=== PATIENT | male | born 1970 | race Caucasian/White ===

== ENCOUNTER 2021-05-24 00:14 | Day surgery (SDC) | payer BC, SELFPAY ==
[2021-05-13 08:09] VITALS: BMI 31.4
[2021-05-24 06:55] VITALS: BP 142/110; PULSE 117; RESP 24; TEMP 36.2; O2SAT 100; BMI 34.2
[2021-05-24] MEDS: LACTATED RINGERS 1,000 ML 150 ML IV CONT (07:03)
--- NOTE | 2021-05-24 07:14 | WPDANESEPPF ---
Anes - Initial Pre Proc Eval Procedure: Operation Date: 05/24/21 08:00 Proposed Procedures p Screening Colonoscopy - Alexandru Caldwell MD Date/Time: 05/24/21 07:14 Surgeon: Alexandru Caldwell MD Pre Op Diagnosis: neoplasm screening Patient Data Age: 50 Gender: M Height: 1.83 m Weight: 114.5 kg Last Vital Signs Temp 36.2 C L 05/24/21 06:55 Pulse 117 H 05/24/21 06:55 Resp 24 H 05/24/21 06:55 BP 142/110 H 05/24/21 06:55 Pulse Ox 100 05/24/21 06:55 Allergies Allergy/AdvReac Type Severity Reaction Status Date / Time No Known Allergies Allergy Verified 05/24/21 06:54 Home Medications Medication Instructions Recorded Confirmed Type aspirin 81 mg tablet,delayed 81 mg PO DAILY 08/21/19 05/13/21 History release multivitamin 1 tablet PO DAILY 08/21/19 05/13/21 History omega-3 fatty acids 1,000 mg 1,000 mg PO DAILY 08/21/19 05/13/21 History capsule fluticasone propionate 50 2 spray NASAL DAILY #47.4 ml 04/07/20 05/13/21 Rx mcg/actuation nasal spray,suspension ascorbic acid (vitamin C) 1,000 mg 1 g PO DAILY 02/18/21 05/13/21 History tablet metoprolol tartrate 50 mg tablet 50 mg PO Q12H #180 tablet 02/18/21 05/13/21 Rx quinapril 20 mg tablet 20 mg PO DAILY #90 tablet 02/18/21 05/13/21 Rx Patient hx anesthesia problems: none Family hx anesthesia problems: none Results Review: All pre-operative results and documents have been reviewed as part of the pre-operative evaluation. [facility] Past Medical History Medical History (Updated 05/24/21 @ 07:15 by Yusuf Hernandez MD) Essential (primary) hypertension Metabolic syndrome Mixed hyperlipidemia Other sleep apnea Prediabetes Family History Family History Mother Diabetes mellitus Hypertension Grandparent Diabetes mellitus Hypertension Sibling Diabetes mellitus Father Hypertension, Onset Age: 41 Family history of cardiovascular disease, Onset Age: 41 Family history of coronary artery disease, Onset Age: 41 Family history of sudden , Onset Age: 41 Other Family history of elevated blood lipids Social History Social History (Reviewed 02/18/21 @ 09:53 by Radhika Sifuentes [facility]) Smoking status: Never smoker Second hand tobacco smoke exposure: No Alcohol intake: current Drinks per week: 2 Alcohol use details: BEERS Substance use: never Substance use type: does not use Living arrangements: with family Spiritual care concerns: No Anes - Eval Final PreProcedure Day of Procedure 05/24/21 07:14 Patient weight: obese Heart: regular rate and rhythm Lungs: clear to auscultation and normal air movement Airway: Mallampati scale class II Neurological: alert and oriented Last oral intake: >/= 8 hours ASA classification: III Emergent: no Anesthetic plan: proceed Anesthesia type and monitoring: general GIVS Results Review: All pre-operative results and documents have been reviewed as part of the pre-operative evaluation. Informed Consent: The patient's anesthetic plan and its attendant risks and benefits were discussed with the patient/family/POA. Questions were solicited and answers provided to the satisfaction of the patient/family/POA.
--- NOTE | 2021-05-24 07:51 | WPDGICN ---
Assessment and Plan Assessment and plan (1) Encounter for screening colonoscopy: Code(s): Z12.11 - Encounter for screening for malignant neoplasm of colon Status: Acute Assessment and Plan: Patient presents for screening colonoscopy. Patient appears to be at average risk for colon polyps. GI Consult Note Consult date/time: 05/24/21 07:51 HPI: Alexandru Sargent is a 50 year old male Presents for screening colonoscopy. Patient states that his current weight appetite and bowel movements are normal. Patient denies abdominal pain. He has had no bleeding. Family history is noncontributory. He presents today for neoplasia screening. Review of Systems Review of Systems: All systems reviewed & are unremarkable except as noted in HPI and below PMFSH Past Medical History Medical History (Updated 05/24/21 @ 07:52 by Alexandru Caldwell MD) Essential (primary) hypertension Metabolic syndrome Mixed hyperlipidemia Other sleep apnea Prediabetes Family History Family History (Reviewed 01/06/20 @ 09:03 by Bernie Partida [facility]) Mother Diabetes mellitus Hypertension Grandparent Diabetes mellitus Hypertension Sibling Diabetes mellitus Father Hypertension, Onset Age: 41 Family history of cardiovascular disease, Onset Age: 41 Family history of coronary artery disease, Onset Age: 41 Family history of sudden , Onset Age: 41 Other Family history of elevated blood lipids Social History Social History (Reviewed 02/18/21 @ 09:53 by Radhika Sifuentes [facility]) Smoking status: Never smoker Second hand tobacco smoke exposure: No Alcohol intake: current Drinks per week: 2 Alcohol use details: BEERS Substance use: never Substance use type: does not use Living arrangements: with family Spiritual care concerns: No Meds Home Medications and Allergies Home Medications Medication Instructions Recorded Confirmed Type aspirin 81 mg tablet,delayed 81 mg PO DAILY 08/21/19 05/13/21 History release multivitamin 1 tablet PO DAILY 08/21/19 05/13/21 History omega-3 fatty acids 1,000 mg 1,000 mg PO DAILY 08/21/19 05/13/21 History capsule fluticasone propionate 50 2 spray NASAL DAILY #47.4 ml 04/07/20 05/13/21 Rx mcg/actuation nasal spray,suspension ascorbic acid (vitamin C) 1,000 mg 1 g PO DAILY 02/18/21 05/13/21 History tablet metoprolol tartrate 50 mg tablet 50 mg PO Q12H #180 tablet 02/18/21 05/13/21 Rx quinapril 20 mg tablet 20 mg PO DAILY #90 tablet 02/18/21 05/13/21 Rx Allergies Allergy/AdvReac Type Severity Reaction Status Date / Time No Known Allergies Allergy Verified 05/24/21 06:54 Vital Signs Vital Signs - 24 hr 05/24/21 06:55 Temperature 97.2 F L Pulse Rate 117 H Respiratory Rate 24 H Blood Pressure 142/110 H Pulse Oximetry 100 Exam Narrative: Physical exam reveals patient to be alert. Vital signs stable. HEENT exam is unremarkable. Patient is anicteric. Lungs are clear to auscultation and percussion. Heart is without murmur or extra sounds. Abdominal exam bowel sounds present soft nontender with no organomegaly. Digital external rectal exam is normal.
[2021-05-24 08:13] VITALS: BP 128/95; PULSE 104; RESP 21; O2SAT 94
[2021-05-24 08:23] VITALS: BP 132/82; PULSE 94; RESP 13; O2SAT 95
[2021-05-24 08:34] VITALS: BP 138/100; PULSE 90; RESP 13; O2SAT 95
== END 2021-05-24 08:47 | disposition home or self-care (01) ==
PROVIDERS: PCP Family Medicine; Visit Provider Internal Medicine Gastroenterology
PROC: 0DJD8ZZ Inspection of Lower Intestinal Tract, Via Natural or Artificial Opening Endoscopic (ICD-10-PCS; CPT 45378; principal; 2021-05-24 08:00)
DX: Z12.11 Encounter for screening for malignant neoplasm of colon (principal); I10 Essential (primary) hypertension; E78.2 Mixed hyperlipidemia; R73.03 Prediabetes; G47.39 Other sleep apnea; Z79.82 Long term (current) use of aspirin
CPT/HCPCS: 45378; J2001; J2704; J7120

== ENCOUNTER 2021-07-01 14:06 | Outpatient (RCR) | payer BC, SELFPAY ==
[2021-07-01] MEDS: FAMOTIDINE 20 MG TABLET PO (14:56)
[2021-07-01] MEDS: diphenhydrAMINE HCl CAP 25 MG CAPSULE PO (14:56)
[2021-07-01] MEDS: ACETAMINOPHEN 325 MG TABLET 650 MG PO (14:56)
[2021-07-01 14:59] VITALS: BP 149/97; PULSE 75; RESP 20; TEMP 36.9; O2SAT 99
[2021-07-01 16:03] VITALS: BP 138/82
== END 2021-07-01 17:00 ==
LOC: AMCINF 14:06
PROVIDERS: PCP Family Medicine; Referring Provider Family Medicine; Visit Provider Internal Medicine Hematology & Oncology
DX: U07.1 COVID-19 (principal); E11.9 Type 2 diabetes mellitus without complications; I10 Essential (primary) hypertension
CPT/HCPCS: A9270; M0243; Q0244

== ENCOUNTER 2022-02-15 08:43 | Outpatient (CLI) | payer BC, SELFPAY ==
[2022-02-15 19:26] LABS: Alanine Aminotransferase 56 U/L (6-50); Albumin Level 4.5 g/dL (3.5-5.1); Alkaline Phosphatase 71 U/L (38-126); Anion Gap 10 mmol/L (8-16); Aspartate Amino Transferase 43 U/L (17-59); Bilirubin,Total 0.7 mg/dL (0.2-1.3); Blood Urea Nitrogen 22 mg/dL (9-20); Calcium 8.9 mg/dL (8.4-10.2); Carbon Dioxide 28 mmol/L (22-30); Chloride 102 mmol/L (98-107); Cholesterol 163 mg/dL (0-200); Estimated Glomerular Filt Rate > 60; Glucose 99 mg/dL (65-110); HDL Direct 29 mg/dL; Potassium 4.1 mmol/L (3.4-5.0); Sodium 140 mmol/L (137-145); Triglycerides 116 mg/dL (<150)
[2022-02-15 19:28] LABS: LDL Cholesterol Direct 104 mg/dL
[2022-02-15 19:36] LABS: Hemoglobin A1C 5.7 % (<5.7)
== END 2022-02-15 08:44 | disposition home or self-care (01) ==
LOC: ANHGOSHLAB 08:44
PROVIDERS: PCP Family Medicine; Visit Provider Family Medicine
DX: E78.5 Hyperlipidemia, unspecified (principal)
CPT/HCPCS: 36415; 80053; 80061; 83036; 84443

== ENCOUNTER 2022-08-15 08:25 | Outpatient (CLI) | payer BC, SELFPAY ==
[2022-08-15 21:17] LABS: Alanine Aminotransferase 46 U/L (6-50); Albumin Level 4.4 g/dL (3.5-5.1); Alkaline Phosphatase 69 U/L (38-126); Anion Gap 5 mmol/L (8-16); Aspartate Amino Transferase 38 U/L (17-59); Bilirubin,Total 0.7 mg/dL (0.2-1.3); Blood Urea Nitrogen 21 mg/dL (9-20); Calcium 8.6 mg/dL (8.4-10.2); Carbon Dioxide 29 mmol/L (22-30); Chloride 102 mmol/L (98-107); Cholesterol 189 mg/dL (0-200); Estimated Glomerular Filt Rate > 60; Glucose 89 mg/dL (65-110); HDL Direct 33 mg/dL; Potassium 4.6 mmol/L (3.4-5.0); Sodium 136 mmol/L (137-145); Triglycerides 110 mg/dL (<150)
[2022-08-15 21:30] LABS: LDL Cholesterol Direct 116 mg/dL
[2022-08-16 10:51] LABS: Hemoglobin A1C 5.8 % (<5.7)
== END 2022-08-15 08:26 | disposition home or self-care (01) ==
LOC: ANHGOSHLAB 08:26
PROVIDERS: PCP Family Medicine; Visit Provider Family Medicine
DX: E78.5 Hyperlipidemia, unspecified (principal)
CPT/HCPCS: 36415; 80053; 80061; 83036

== ENCOUNTER 2023-08-24 08:01 | Outpatient (CLI) | payer BC, SELFPAY ==
--- NOTE | 2023-08-24 08:19 | ECG_ITS ---
Measurements Intervals [place] Rate: 62 P: -9 AK: 213 QRS: -12 QRSD: 106 T: -3 QT: 404 QTc: 412 Interpretive Statements SINUS RHYTHM WITH FIRST DEGREE AV BLOCK INFERIOR MYOCARDIAL INFARCTION [40+ ms Q WAVE AND/OR ST/T ABNORMALITY IN II/aVF], OF INDETERMINATE AGE ABNORMAL ECG NO PREVIOUS ECG AVAILABLE FOR COMPARISON Electronically Signed On 08-24-2023 12:40:45 [employer] by Marco Simental M.D.
== END 2023-08-24 08:02 | disposition home or self-care (01) ==
LOC: ANHSURGERY 08:05
PROVIDERS: PCP Family Medicine; Visit Provider Surgery
DX: Z01.818 Encounter for other preprocedural examination (principal); I10 Essential (primary) hypertension; K40.90 Unilateral inguinal hernia, without obstruction or gangrene, not specified as recurrent; I44.0 Atrioventricular block, first degree; I21.9 Acute myocardial infarction, unspecified
CPT/HCPCS: 36415; 86850; 86900; 86901; 93005

== ENCOUNTER 2023-08-29 00:13 | Day surgery (SDC) | payer BC, SELFPAY ==
[2023-08-21 09:50] VITALS: BMI 33.2
--- NOTE | 2023-08-21 09:55 | PC.NURSE ---
Report to the Outpatient Waiting Room, entrance under the green pavilion located off [facility], at time 11:30 on date 08/29/23. Planned Procedure Time: 1:30. Time changes happen often and if your time is changed the preop area will call you the afternoon before. - You and your visitor will be asked to self-screen and do not enter if you have any COVID symptoms. - A mask is optional within the hospital at this time. Patients may have clear liquids (water, carbonated beverages, clear teas, apple juice) until 3 hours prior to surgery (10:30) with a maximum of 20 ounces. - No food from midnight until time of surgery Take the following medications with a SIP of water the morning of surgery: METOPROLOL DO NOT STOP ANY OF YOUR OTHER PRESCRIPTION MEDICATIONS PRIOR TO SURGERY ?EXCEPT THE FOLLOWING Medications to discontinue per physician: VITAMINS/SUPPLEMENTS Date to take last dose: 08/25/23 Please no make-up, nail georgian, hairspray, perfume, deodorant, or body powder the day of surgery. No jewelry (including any body piercings) or valuables the day of surgery, leave them at home. Please take a shower or bath the night before, or the morning of, surgery with an antibacterial soap. Wear comfortable, loose fitting clothing. - Jewelry must be removed prior to entering the operating room. Rings and piercings that are not removed may be cut off. - The hospital will not accept responsibility for valuables. - Please leave all valuables, including medications, at home the day of surgery. If you are going home after surgery, a licensed team driver must drive you home. - NO public transportation without another adult if you receive anesthesia. - We recommend that an adult stay with you for 24 hours following discharge. - We also recommend that you do not drive, make important decision, drink alcoholic beverages, or take any drugs that were not prescribed by your health care provider for at least 24 hours after your discharge time. Follow any additional instructions given to you from your surgeon. If you or anyone in your household have experienced Covid symptoms in the past week, please notify your surgeon or the nurse liaison at the phone number below for possible testing. Telephone instructions given to PT - ANTONIA MAGUIRE and asked if any additional questions and then verbalized understanding. Patient advised to call surgeon office or pre surgery nurse liaison [phone] if any additional questions.
[2023-08-29] VITALS (9 sets, daily range): BP systolic 109–152; BP diastolic 68–98; PULSE 57–80; RESP 12–16; TEMP 36.2; O2SAT 97–100
[2023-08-29] MEDS: LACTATED RINGERS 1,000 ML 30 ML IV CONT ×3 (12:00→17:44)
[2023-08-29] MEDS: ACETAMINOPHEN 500 MG TABLET 1000 MG PO (12:00)
[2023-08-29] MEDS: KETOROLAC 15 MG/ML VIAL (*BKC) IV PUSH (12:00)
--- NOTE | 2023-08-29 12:44 | WPDANESEPPF ---
Anes - Initial Pre Proc Eval Procedure: Operation Date: 08/29/23 13:30 Proposed Procedures p Robotic Assisted Laparoscopic Left Inguinal Hernia Repair, Possible Right Inguinal Hernia Repair - Greg Mcnair MD Date/Time: 08/29/23 12:44 Surgeon: Greg Mcnair MD Pre Op Diagnosis: reducible left inguinal hernia Patient Data Age: 52 Gender: M Height: 1.83 m Weight: 111 kg Last Vital Signs Temp 97.2 F L 08/29/23 12:25 Pulse 68 08/29/23 12:25 Resp 14 08/29/23 12:25 BP 152/98 H 08/29/23 12:25 Pulse Ox 100 08/29/23 12:25 O2 Del Method Room Air 08/29/23 12:25 Allergies Allergy/AdvReac Type Severity Reaction Status Date / Time No Known Allergies Allergy Verified 08/29/23 12:43 Home Medications Medication Instructions Recorded Confirmed Type aspirin 81 mg tablet,delayed 81 mg PO DAILY 08/21/19 08/21/23 History release (Adult Low Dose Aspirin) multivitamin 1 tablet PO DAILY 08/21/19 08/21/23 History omega-3 fatty acids 1,000 mg 1,000 mg PO DAILY 08/21/19 08/21/23 History capsule (Fish Oil Concentrate) ascorbic acid (vitamin C) 1,000 mg 1 g PO DAILY 02/18/21 08/21/23 History tablet fluticasone propionate 50 2 spray intranasal DAILY #47.4 mL 08/18/22 08/21/23 Rx mcg/actuation nasal spray,suspension metoprolol tartrate 50 mg tablet 50 mg PO Q12H #180 tabs 08/18/22 08/21/23 Rx lisinopril 20 mg tablet 20 mg PO DAILY #90 tabs 03/01/23 08/21/23 Rx Patient hx anesthesia problems: none Family hx anesthesia problems: none Results Review: All pre-operative results and documents have been reviewed as part of the pre-operative evaluation. [facility] Past Medical History Medical History Essential (primary) hypertension Metabolic syndrome Mixed hyperlipidemia Other sleep apnea Prediabetes Surgical History Surgical History H/O inguinal hernia repair Family History Family History Mother Diabetes mellitus Hypertension Grandparent Diabetes mellitus Hypertension Sibling Diabetes mellitus Father Hypertension, Onset Age: 41 Family history of cardiovascular disease, Onset Age: 41 Family history of coronary artery disease, Onset Age: 41 Family history of sudden , Onset Age: 41 Other Family history of elevated blood lipids Social History Social History Smoking status: Never smoker Second hand tobacco smoke exposure: No Alcohol intake: current Drinks per week: 2 Alcohol use details: BEERS Substance use: never Substance use type: does not use Lack of Transportation: No Lack of Food: Never True Current Housing: I Have Housing Concerned About Future Housing: No Difficulty Paying Gas/Electric Bills: No Difficulty Paying for Meds: No Currently Unemployed: No Education: High School Diploma/GED Difficulty w/ Childcare or Family Care: No Living arrangements: with family Spiritual care concerns: No Anes - Eval Final PreProcedure Day of Procedure 08/29/23 12:44 Patient weight: obese Heart: regular rate and rhythm Lungs: clear to auscultation Airway: Mallampati scale class II Neurological: alert and oriented Last oral intake: >/= 8 hours ASA classification: III Emergent: no Anesthetic plan: proceed Anesthesia type and monitoring: general ETT and standard monitoring Results Review: All pre-operative results and documents have been reviewed as part of the pre-operative evaluation. Informed Consent: The patient's anesthetic plan and its attendant risks and benefits were discussed with the patient/family/POA. Questions were solicited and answers provided to the satisfaction of the patient/family/POA.
--- NOTE | 2023-08-29 13:05 | WPDHPUPDATE1 ---
History and Physical Update Update Date/Time: 08/29/23 13:05 History and Physical has been reviewed, including an updated exam of the patient. There are NO changes in the patient's condition. Risks, benefits, and alternatives have been discussed and questions answered. Patient agrees to proceed with procedure.
[2023-08-29] MEDS: ceFAZolin 2 GM/D5W 50 ML 2 GM/50 ML BAG IVPB (13:59)
[2023-08-29] MEDS: LIDO 1%/EPINEPHRINE 1:100,000 50 ML VIAL 30 ML INFILTRATE (14:36)
[2023-08-29] MEDS: KETOROLAC 30 MG/ML VIAL (*BKC) 15 MG IM (15:52)
--- NOTE | 2023-08-30 12:16 | W.PM.PROC2 ---
Procedure Note - Detailed Date of Procedure 08/29/23 Pre-op Diagnosis Reducible left inguinal hernia Post-op Diagnosis Other ( Incarcerated left inguinal hernia.) Procedure Performed Robotic assisted laparoscopic left inguinal hernia repair with Bard 3D mid weight mesh ( [id number] ). Surgeon Greg Mcnair MD Wildlife Conservationist Alexandru Ramirez [facility] Anesthesia General Indications Patient is a 52-year-old gentleman who presented with a large left inguinal hernia which was only partially reducible. It seemed to extend down to the base of the scrotum but did not seem to fill the scrotum. He had no bowel obstructive symptoms but due to increasing discomfort and increasing size the hernia presents now for elective repair the left inguinal hernia with robotic assisted laparoscopic approach with mesh. Findings Patient a large indirect left inguinal hernia. A short segment of the sigmoid colon was actually incarcerated within the left inguinal canal in the hernia sac. I was able to easily reduce the hernia robotically however and the bowel was completely viable. No evidence of a direct or femoral component was seen. No evidence of a right inguinal hernia seen Description of Procedure After informed consent was obtained patient brought to the operating room was placed supine position and then general endotracheal anesthesia was administered. The abdomen and bilateral groin regions were then prepped and draped usual sterile fashion. A time-out was then performed correctly identifying the patient as well as procedure to be performed. Site marking was verified and he was given perioperative IV antibiotics. I 1st started by making a small incision left upper quadrant and then placing a 10mm Optiview port. Once inside the abdomen insufflated and pneumoperitoneum 15mmHg of CO2. Additional 8mm robotic trocar ports were then placed across the mid abdomen. Patient was then placed and to the Trendelenburg position with 15? of Trendelenburg. I then observed that there were no adhesions of the bowel or omentum to obscure the lower quadrants of the abdomen. No evidence of a right inguinal hernia was seen. On the left side there is a large indirect left inguinal hernia with a short segment of the sigmoid colon going down into the hernia sac. The bowel was not obstructed. I then had the [employer] robot brought to the patient's bedside and docked robotic instruments advanced into the abdomen under direct visualization. I then scrubbed out the procedure sent down the robotic console for dissection robotically. I 1st started by reducing the sigmoid colon and the inguinal canal. The adhesion of the epiploic appendage on the sigmoid colon which was scarred to the hernia sac was divided with electrocautery releasing the colon. It was completely reduced from the inguinal canal. I then made a incision on the peritoneum across the left side of the lower abdominal wall. I then continued the dissection distally preperitoneal plane medially dividing the left medial umbilical ligament and dissecting all the way down to the left pubic tubercle. I dissected down into the space of Retzius for couple cm in dissected medially across the midline of the pubic symphysis. Laterally I dissected in the preperitoneal plane going down to the hernia sac as it was going into the internal ring. The inferior epigastric vessels were identified and preserved without injury. I dissected the large indirect inguinal hernia sac out of the inguinal canal and from the vas deferens and testicular vessels. Once this was done I then be everted the hernia sac and then dissected the peritoneal flap proximally up onto the psoas muscle to make sure that the proximal portion mesh would not curl up with the tacking up the peritoneum. At this point I then measured at space in decided to use a extra-large piece of Bard 3D mid weight mesh oriented for the left groin region. It measured 17cm in length by 12cm
== END 2023-08-29 19:10 | disposition home or self-care (01) ==
PROVIDERS: PCP Family Medicine; Visit Provider Surgery
PROC: 8E0Y4CZ Robotic Assisted Procedure of Lower Extremity, Percutaneous Endoscopic Approach (ICD-10-PCS; CPT 49650; principal; 2023-08-29 13:30)
DX: K40.30 Unilateral inguinal hernia, with obstruction, without gangrene, not specified as recurrent (principal); I10 Essential (primary) hypertension; E78.2 Mixed hyperlipidemia
CPT/HCPCS: 49650; S2900; A9270; C1781; J0690; J1100; J1170; J1596; J1885; J2250; J2405; J2704; J3010; J7030; J7120

== ENCOUNTER 2023-10-11 08:34 | Outpatient (CLI) | payer BC, SELFPAY ==
[2023-10-11 12:24] LABS: Alanine Aminotransferase 46 U/L (6-50); Albumin Level 4.3 g/dL (3.5-5.1); Alkaline Phosphatase 67 U/L (38-126); Anion Gap 5 mmol/L (4-12); Aspartate Amino Transferase 55 U/L (17-59); Bilirubin,Total 0.8 mg/dL (0.2-1.3); Blood Urea Nitrogen 19 mg/dL (9-20); Calcium 9.2 mg/dL (8.4-10.2); Carbon Dioxide 29 mmol/L (22-30); Chloride 103 mmol/L (98-107); Cholesterol 177 mg/dL (0-200); Estimated Glomerular Filt Rate > 60; Glucose 109 mg/dL (65-110); HDL Direct 31 mg/dL; Potassium 4.3 mmol/L (3.4-5.0); Sodium 137 mmol/L (137-145); Triglycerides 166 mg/dL (<150)
[2023-10-11 12:34] LABS: LDL Cholesterol Direct 118 mg/dL
[2023-10-12 00:47] LABS: Hemoglobin A1C 6.1 % (<5.7)
== END 2023-10-11 08:35 | disposition home or self-care (01) ==
LOC: ANHGOSHLAB 08:35
PROVIDERS: PCP Family Medicine; Visit Provider Family Medicine
DX: R74.8 Abnormal levels of other serum enzymes (principal); R73.03 Prediabetes; E78.5 Hyperlipidemia, unspecified
CPT/HCPCS: 36415; 80053; 80061; 83036

== ENCOUNTER 2024-12-11 09:32 | Outpatient (CLI) | payer BC, SELFPAY ==
[2024-12-11 21:15] LABS: Alanine Aminotransferase 53 U/L (6-50); Albumin Level 4.5 g/dL (3.5-5.1); Alkaline Phosphatase 55 U/L (38-126); Anion Gap 12 mmol/L (4-12); Aspartate Amino Transferase 50 U/L (17-59); Bilirubin,Total 0.8 mg/dL (0.2-1.3); Blood Urea Nitrogen 23 mg/dL (9-20); Calcium 9.4 mg/dL (8.4-10.2); Carbon Dioxide 23 mmol/L (22-30); Chloride 103 mmol/L (98-107); Cholesterol 184 mg/dL (0-200); Estimated Glomerular Filt Rate > 60; Glucose 88 mg/dL (65-110); HDL Direct 34 mg/dL; Potassium 4.1 mmol/L (3.4-5.0); Sodium 138 mmol/L (137-145); Total Protein 7.7 g/dL (6.3-8.2); Triglycerides 173 mg/dL (<150)
[2024-12-11 21:28] LABS: LDL Cholesterol Direct 108 mg/dL
[2024-12-11 21:48] LABS: Prostate Specific Antigen 2.5 ng/mL (< OR = 4.0)
[2024-12-11 22:01] LABS: Hemoglobin A1C 5.9 % (<5.7)
== END 2024-12-11 09:33 | disposition home or self-care (01) ==
LOC: ANHGOSHLAB 09:32
PROVIDERS: PCP Family Medicine; Visit Provider Family Medicine
DX: Z12.5 Encounter for screening for malignant neoplasm of prostate (principal); E78.5 Hyperlipidemia, unspecified; R73.03 Prediabetes
CPT/HCPCS: 36415; 80053; 80061; 83036; 84153; G0103

== ENCOUNTER 2025-01-25 09:07 | Emergency (ER) | payer BC, SELFPAY ==
[2025-01-25 09:18] VITALS: BP 149/97; PULSE 58; RESP 16; TEMP 36.3; O2SAT 98
--- NOTE | 2025-01-25 09:37 | ED.ABDPAIN ---
HPI - Abdominal Pain General Chief Complaint: Abdominal Pain Stated Complaint: Abdominal Pain Time Seen by Provider: 01/25/25 09:24 Source: patient and RN notes reviewed Mode of arrival: ambulatory Limitations: no limitations History of Present Illness HPI narrative: Patient presents today complaining of a 2 day history of left lower quadrant abdominal pain with bloating sensation. He has been taking ibuprofen with some short-term relief and currently rates his pain 4/10. He took 1 dose of milk of magnesia yesterday for some firm stools without much improvement as well. He had some firm stool yesterday and some today. Denies fever, sweats or chills, nausea, vomiting, diarrhea, chest pain, urinary symptoms. He had a colonoscopy a few years ago and states it was normal. No history of diverticulitis or diverticulosis. Related Data Home Medications ?Medication ?Instructions ?Recorded ?Confirmed ?Last Taken ?Type aspirin 81 mg tablet,delayed 81 mg PO DAILY 08/21/19 05/17/24 08/26/23 History release (Adult Low Dose Aspirin) multivitamin 1 tablet PO DAILY 08/21/19 05/17/24 08/26/23 History omega-3 fatty acids 1,000 mg 1,000 mg PO DAILY 08/21/19 05/17/24 08/26/23 History capsule (Fish Oil Concentrate) ascorbic acid (vitamin C) 1,000 mg 1 g PO DAILY 02/18/21 05/17/24 08/26/23 History tablet red beet 500 mg capsule mg PO 12/19/24 Unknown History Allergies Allergy/AdvReac Type Severity Reaction Status Date / Time No Known Allergies Allergy Verified 12/19/24 09:03 [facility] Past Medical History Medical History Metabolic syndrome Mixed hyperlipidemia Other sleep apnea Prediabetes Essential (primary) hypertension Surgical History Surgical History H/O inguinal hernia repair Robotic assisted laparoscopic left inguinal hernia repair with Bard 3D mid weight mesh ( [id number] ) 08/29/23 SAW Family History Family History Mother Diabetes mellitus Hypertension Grandparent Diabetes mellitus Hypertension Sibling Diabetes mellitus Father Hypertension, Onset Age: 41 Family history of cardiovascular disease, Onset Age: 41 Family history of coronary artery disease, Onset Age: 41 Family history of sudden , Onset Age: 41 Other Family history of elevated blood lipids Social History Social History Smoking status: Never smoker Second hand tobacco smoke exposure: No Alcohol intake: current Drinks per week: 2 Alcohol use details: BEERS Substance use: never Substance use type: does not use Lack of Transportation: No Lack of Food: Never True Current Housing: I Have Housing Concerned About Future Housing: No Difficulty Paying Gas/Electric Bills: No Difficulty Paying for Meds: No Currently Unemployed: No Education: High School Diploma/GED Difficulty w/ Childcare or Family Care: No Living arrangements: with family Spiritual care concerns: No Comments At time of signature, I have reviewed and agree with nursing past medical, surgical, social and family history unless otherwise noted. Please see nursing chart for further information. There is no relevant family history pertinent to the presenting complaint Exam Narrative: GENERAL: Well-appearing, well-nourished, and in no acute distress. HEAD: Normocephalic, atraumatic. EYES: EOMI. No redness or drainage. Conjunctivae normal. ENT: Mucous membranes pink and moist. NECK: Normal AROM. CHEST: No respiratory distress. Clear to auscultation. HEART: Regular rate and rhythm. No murmur appreciated. ABDOMEN: Soft, nondistended, normal active bowel sounds.+ tenderness to the left lower quadrant without rebound or guarding. EXTREMITIES: Normal range of motion. No edema. SKIN: Warm, dry, no rash. Capillary refill normal. Normal skin turgor. NEURO: No focal deficits. Alert and oriented x3. Gait steady. PSYCH: Normal affect. No signs of depression or anxiety. Course Course Level of Care: Express Care Visit Vital Signs Vital signs: Vital Signs Temperature 97.3 F L 01/25/25 09:18 Pulse Rate 58 L 01/25/25 09:18 Respiratory Rate 16 01/25/25 09:18 Blood Pressure 149/97 H 01/25/25 09:18 Pulse Oximetry 98 01/25/25 09:18 Temperature 97.3 F L 01/25/25 09:18 Pulse Rate 58 L 01/25/25 09:18 Respiratory Rate 16 01/25/25 09:18 Blood Pressure 149/97 H 01/25/25 09:18 Pulse Oximetry 98 01/25/25 09:18 Reviewed Transfer Transfered to: [place] Transportation: Other (Private vehicle) Transfer rationale: Abdominal pain and tenderness Accepting physician: Marquis MDM - Abdominal Pain MDM Narrative Medical decision making narrative: 54-year-old male patient presents with a 2 day history of left lower quadrant abdominal pain with occasional firm stools. Denies any additional symptoms and currently rates pain 4/10. Some short-term relief with ibuprofen. Vital signs stable. Patient will be transferred to the ER at [facility] for further evaluation of his symptoms. Differential Diagnosis Differential diagnosis: Likely calculus of kidney, constipation and diverticulitis Critical Care Time Critical Care Time Critical Care Time: No Discharge Plan Discharge Clinical Impression: Abdominal pain, acute, left lower quadrant Patient Disposition: Acute Care Hospital Condition: Stable Patient Language: Filipino Prescriptions: No Action ascorbic acid (vitamin C) 1,000 mg tablet 1 g PO DAILY aspirin [Adult Low Dose Aspirin] 81 mg tablet,delayed release (DR/EC) 81 mg PO DAILY omega-3 fatty acids [Fish Oil Concentrate] 1,000 mg capsule 1,000 mg PO DAILY multivitamin Tablet 1 tablet PO DAILY red beet 500 mg capsule PO fluticasone propionate 50 mcg/actuation spray,suspension 2 spray NASAL DAILY Qty: 47.4 1RF Rx Instructions: administer into each nostril lisinopril 20 mg tablet 20 mg PO DAILY Qty: 90 1RF metoprolol tartrate 50 mg tablet 50 mg PO Q12H Qty: 180 1RF Follow-up/Referrals: Vinnie Freeman MD [Primary Care Provider] - Time of Disposition: 09:36
== END 2025-01-25 09:50 | disposition short-term general hospital (02) ==
PROVIDERS: Emergency Provider Nurse Practitioner; PCP Family Medicine
DX: R10.32 Left lower quadrant pain (principal); E78.2 Mixed hyperlipidemia; I10 Essential (primary) hypertension; Z79.1 Long term (current) use of non-steroidal anti-inflammatories (NSAID)
CPT/HCPCS: 99212; G0463

== ENCOUNTER 2025-01-25 09:59 | Emergency (ER) | payer BC, SELFPAY ==
--- NOTE | ~2025-01-25 | CT_ITS ---
EXAMINATION: CT abdomen pelvis w con DATE: 01/25/2025 12:52 INDICATION: Left lower quadrant pain TECHNIQUE: Computed tomography (CT) of the abdomen and pelvis was performed without intravenous contr ast. The dose-length product was 995.93 mGy-cm. Automated exposure control and iterative reconstructi on technique were employed. COMPARISON: CT dated 07/23/1999. FINDINGS: Lung bases unremarkable. Heart size normal. Fatty infiltration of the liver. The spleen, pa ncreas, adrenal glands and kidneys are unremarkable. Nonobstructive bowel gas pattern. No significant vascular abnormality. No lymphadenopathy. Gallbladder is present. Lower thoracic and lumbar spondylo sis. No acute osseous abnormality. No free air or free fluid. No lymphadenopathy. No evidence for div erticulitis. IMPRESSION: 1. No acute abdominal abnormality. Reviewed, dictated and finalized at location A.
[2025-01-25 10:23] VITALS: PULSE 56; RESP 12; TEMP 36.4; O2SAT 99
[2025-01-25 10:36] LABS: Hematocrit 50.2 % (42.0-52.0); Hemoglobin 16.4 g/dL (14.0-18.0); Immature Granulocyte Percent A 0.2 % (0-0.5); Lymphocytes Absolute Auto 1.50 K/mm3 (0.9-3.2); Mean Corpuscular HGB Conc 32.7 g/dl (32-36); Mean Corpuscular Hemoglobin 30.7 pg (26-34); Mean Corpuscular Volume 93.8 fl (80-100); Nucleated Red Blood Cells Absolute Auto 0.000 K/mm3 (0.0-0.012); Nucleated Red Blood Cells Perc 0.0 % (0.0-0.2); Platelet Count Result 177 k/mm3 (150-375); Red Blood Count 5.35 M/mm3 (4.6-6.20); White Blood Count 6.4 K/mm3 (4.5-10.0)
[2025-01-25 10:52] LABS: Alanine Aminotransferase 54 U/L (6-50); Albumin Level 4.6 g/dL (3.5-5.1); Alkaline Phosphatase 50 U/L (38-126); Anion Gap 10 mmol/L (4-12); Aspartate Amino Transferase 38 U/L (17-59); Bilirubin,Total 0.8 mg/dL (0.2-1.3); Blood Urea Nitrogen 21 mg/dL (9-20); Calcium 9.3 mg/dL (8.4-10.2); Carbon Dioxide 27 mmol/L (22-30); Chloride 104 mmol/L (98-107); Estimated CRCL calculation 101 ml/min; Estimated Glomerular Filt Rate > 60; Glucose 113 mg/dL (65-110); Lipase 76 U/L (23-300); Potassium 4.5 mmol/L (3.4-5.0); Sodium 141 mmol/L (137-145); Total Protein 8.0 g/dL (6.3-8.2)
[2025-01-25 11:20] VITALS: BP 158/91; PULSE 60; RESP 16; TEMP 36.8; O2SAT 98
[2025-01-25 11:31] VITALS: BP 135/91; PULSE 59; RESP 13; O2SAT 100
[2025-01-25 11:34] LABS: Add Urine Microscopic? YES; Appearance Urine Clear (Clear); Glucose Urine UA Negative (Negative); Leukocyte Esterase Ur Negative LEU/UL (Negative); Nitrate Urine Negative (Negative); Non Pathogenic Casts 0-2; Specific Grav Ur 1.025 (1.001-1.035)
[2025-01-25 12:01] VITALS: BP 142/84; PULSE 62; RESP 7; O2SAT 98
--- NOTE | 2025-01-25 12:42 | ED_ITS ---
HPI - General Adult General Chief complaint: Abdominal Pain Stated complaint: abdominal pain since Time Seen by Provider: 01/25/25 10:42 History of Present Illness HPI narrative: This is a 54-year-old male presenting ED with chief complaint of left lower quadrant pain. Symptoms started 2 days ago. They are not associated with fevers chills nausea vomiting. He has been constipated and took some magnesium citrate which is led to him having watery stools. He denies chest pain difficulty breathing or urinary symptoms. Related Data Home Medications ?Medication ?Instructions ?Recorded ?Confirmed ?Last Taken ?Type aspirin 81 mg tablet,delayed 81 mg PO DAILY 08/21/19 05/17/24 08/26/23 History release (Adult Low Dose Aspirin) multivitamin 1 tablet PO DAILY 08/21/19 05/17/24 08/26/23 History omega-3 fatty acids 1,000 mg 1,000 mg PO DAILY 08/21/19 05/17/24 08/26/23 History capsule (Fish Oil Concentrate) ascorbic acid (vitamin C) 1,000 mg 1 g PO DAILY 02/18/21 05/17/24 08/26/23 History tablet red beet 500 mg capsule mg PO 12/19/24 Unknown History Allergies Allergy/AdvReac Type Severity Reaction Status Date / Time No Known Allergies Allergy Verified 12/19/24 09:03 [facility] Past Medical History Medical History Metabolic syndrome Mixed hyperlipidemia Other sleep apnea Prediabetes Essential (primary) hypertension Surgical History Surgical History H/O inguinal hernia repair Robotic assisted laparoscopic left inguinal hernia repair with Bard 3D mid weight mesh ( [id number] ) 08/29/23 [facility] Family History Family History Mother Diabetes mellitus Hypertension Grandparent Diabetes mellitus Hypertension Sibling Diabetes mellitus Father Hypertension, Onset Age: 41 Family history of cardiovascular disease, Onset Age: 41 Family history of coronary artery disease, Onset Age: 41 Family history of sudden , Onset Age: 41 Other Family history of elevated blood lipids Social History Social History Smoking status: Never smoker Second hand tobacco smoke exposure: No Alcohol intake: current Drinks per week: 2 Alcohol use details: BEERS Substance use: never Substance use type: does not use Lack of Transportation: No Lack of Food: Never True Current Housing: I Have Housing Concerned About Future Housing: No Difficulty Paying Gas/Electric Bills: No Difficulty Paying for Meds: No Currently Unemployed: No Education: High School Diploma/GED Difficulty w/ Childcare or Family Care: No Living arrangements: with family Spiritual care concerns: No Exam 2 Narrative: APPEARANCE: No apparent distress. Head: atraumatic. EYES: EOMI, NOSE: Atraumatic NECK: Trachea midline RESPIRATORY: No increased rate of breathing clear to auscultation CARDIOVASCULAR: RRR, no peripheral edema ABDOMINAL: Non-distended soft nontender no guarding or rebound MUSCULOSKELETAl: No obvious deformities NEURO: Alert. Moving 4/4 extremities SKIN:: Warm, dry. Normal color PSYCHIATRIC: Normal affect Course Vital Signs Vital signs: Vital Signs Temperature 97.5 F L 01/25/25 10:23 Pulse Rate 56 L 01/25/25 10:23 Respiratory Rate 12 01/25/25 10:23 Pulse Oximetry 99 01/25/25 10:23 Oxygen Delivery Room Air 01/25/25 10:23 Temperature 98.2 F 01/25/25 11:20 Pulse Rate 60 01/25/25 11:20 Respiratory Rate 16 01/25/25 11:20 Blood Pressure 158/91 H 01/25/25 11:20 Pulse Oximetry 98 01/25/25 11:20 Oxygen Delivery Room Air 01/25/25 10:23 Medical Decision Making [facility] Narrative Medical decision making narrative: -Course: 54-year-old male presents left lower quadrant pain. Pain is improved with passing gas. Patient has been constipated has been taking magnesium citrate. Vital signs stable. Abdominal exam is benign. Laboratory studies within normal limits. CT abdomen pelvis unremarkable. Suspect pain is due to constipation versus gas pains. Patient was informed the results of discharged follow-up as primary care physician for further management. -DDX includes but is not limited to: Diverticulitis, colitis, constipation, colonic spasm Vital Signs Vital Signs: Vital Signs Temperature 97.5 F L 01/25/25 10:23 Pulse Rate 56 L 01/25/25 10:23 Respiratory Rate 12 01/25/25 10:23 Pulse Oximetry 99 01/25/25 10:23 Oxygen Delivery Room Air 01/25/25 10:23 Temperature 98.2 F 01/25/25 11:20 Pulse Rate 60 01/25/25 11:20 Respiratory Rate 16 01/25/25 11:20 Blood Pressure 158/91 H 01/25/25 11:20 Pulse Oximetry 98 01/25/25 11:20 Oxygen Delivery Room Air 01/25/25 10:23 Lab Data 01/25/25 10:25 01/25/25 10:25 Labs: Lab Results 01/25/25 01/25/25 Range/Units 10:25 11:24 WBC 6.4 (4.5-10.0) K/mm3 RBC 5.35 (4.6-6.20) M/mm3 Hgb 16.4 (14.0-18.0) g/dL Hct 50.2 (42.0-52.0) % MCV 93.8 (80-100) fl MCH 30.7 (26-34) pg MCHC 32.7 (32-36) g/dl RDW 13.6 (11.5-14.5) % Plt Count 177 (150-375) k/mm3 MPV 10.8 H (7.4-10.4) fl Immature Gran % (Auto) 0.2 (0-0.5) % Neut % (Auto) 64.3 (45.5-73.1) % Lymph % (Auto) 23.6 (18.3-44.2) % [place] % (Auto) 8.6 H (2.6-8.5) % Eos % (Auto) 2.4 (0-4.4) % Baso % (Auto) 0.9 (0.2-1.2) % Lymph # (Auto) 1.50 (0.9-3.2) K/mm3 [place] # (Auto) 0.6 (0.1-0.6) K/mm3 Eos # (Auto) 0.2 (0-0.3) K/mm3 Baso # (Auto) 0.1 (0.0-0.1) K/mm3 Abs Immat Gran (auto) 0.01 (0.00-0.031) K/mm3 Absolute Neuts (auto) 4.1 (1.3-6.7) K/mm3 Absolute Nucleated RBC 0.000 (0.0-0.012) K/mm3 Nucleated RBC % 0.0 (0.0-0.2) % Sodium 141 (137-145) mmol/L Potassium 4.5 (3.4-5.0) mmol/L Chloride 104 (98-107) mmol/L Carbon Dioxide 27 (22-30) mmol/L Anion Gap 10 (4-12) mmol/L BUN 21 H (9-20) mg/dL Creatinine 0.96 (0.7-1.3) mg/dL Estim Creat Clear Calc 101 ml/min Estimated GFR > 60 (59 - ) Glucose 113 H (65-110) mg/dL Lactic Acid 0.8 (0.7-2.0) mmol/L Calcium 9.3 (8.4-10.2) mg/dL Total Bilirubin 0.8 (0.2-1.3) mg/dL AST 38 (17-59) U/L ALT 54 H (6-50) U/L Alkaline Phosphatase 50 (38-126) U/L Total Protein 8.0 (6.3-8.2) g/dL Albumin 4.6 (3.5-5.1) g/dL Lipase 76 (23-300) U/L Urine Color Yellow (Yellow) Urine Appearance Clear (Clear) Urine pH 6.0 (5.0-9.0) Ur Specific Tiff 1.025 (1.001-1.035) Urine Protein 1+ H (Negative) mg/dL Urine Glucose (UA) Negative (Negative) mg/dL Urine Ketones Trace H (Negative) mg/dL Ur Blood (Man) Negative (Negative) Urine Nitrate Negative (Negative) Urine Bilirubin Negative (Negative) Urine Urobilinogen 0.2 (<2.0) mg/dL Leukocyte Esterase Rfl Negative (Negative) AVELINO/UL Urine RBC 0-2 (0-2) /hpf Urine WBC 0-5 (0-3) /hpf Ur Squamous Epith Cells None seen (Few) /hpf Urine Bacteria None seen /hpf Urine Casts 0-2 Discharge Plan Discharge Clinical Impression: Abdominal pain Patient Disposition: Home Condition: Stable Instructions: Antibiotic Form, Abdominal Pain (ED) Additional Instructions: You were seen in the ED for left-sided abdominal pain. Her laboratory studies and CT abdomen pelvis were reassuring. I believe your pain is most likely due to gas pains versus constipation. Please follow-up with your primary care physician. If you develop severe pain fevers or any new or worsening symptoms please return to the ED for re-evaluation. Patient Language: Yakut Prescriptions: No Action ascorbic acid (vitamin C) 1,000 mg tablet 1 g PO DAILY aspirin [Adult Low Dose Aspirin] 81 mg tablet,delayed release (DR/EC) 81 mg PO DAILY omega-3 fatty acids [Fish Oil Concentrate] 1,000 mg capsule 1,000 mg PO DAILY multivitamin Tablet 1 tablet PO DAILY red beet 500 mg capsule PO fluticasone propionate 50 mcg/actuation spray,suspension 2 spray NASAL DAILY Qty: 47.4 1RF Rx Instructions: administer into each nostril lisinopril 20 mg tablet 20 mg PO DAILY Qty: 90 1RF metoprolol tartrate 50 mg tablet 50 mg PO Q12H Qty: 180 1RF Follow-up/Referrals: Vinnie Freeman MD [Primary Care Provider] -
[2025-01-25 13:39] VITALS: BP 142/86; PULSE 74; RESP 16; O2SAT 99
== END 2025-01-25 13:40 | disposition home or self-care (01) ==
PROVIDERS: Emergency Medicine; Emergency Provider Emergency Medicine; PCP Family Medicine
DX: R10.32 Left lower quadrant pain (principal); I10 Essential (primary) hypertension; E78.2 Mixed hyperlipidemia; E88.810 Metabolic syndrome; R73.03 Prediabetes; G47.39 Other sleep apnea
CPT/HCPCS: 36415; 74177; 80053; 81001; 83605; 83690; 85025; 99284; Q9967

== ENCOUNTER 2025-06-23 08:07 | Outpatient (CLI) | payer BC, SELFPAY ==
[2025-06-23 11:20] LABS: Alanine Aminotransferase 53 U/L (6-50); Albumin Level 4.6 g/dL (3.5-5.1); Alkaline Phosphatase 61 U/L (38-126); Anion Gap 5 mmol/L (4-12); Aspartate Amino Transferase 51 U/L (17-59); Bilirubin,Total 0.9 mg/dL (0.2-1.3); Blood Urea Nitrogen 19 mg/dL (9-20); Calcium 9.4 mg/dL (8.4-10.2); Carbon Dioxide 30 mmol/L (22-30); Chloride 102 mmol/L (98-107); Cholesterol 190 mg/dL (0-200); Estimated Glomerular Filt Rate > 60; Glucose 103 mg/dL (65-110); HDL Direct 34 mg/dL; Potassium 4.3 mmol/L (3.4-5.0); Sodium 137 mmol/L (137-145); Total Protein 8.1 g/dL (6.3-8.2); Triglycerides 164 mg/dL (<150)
[2025-06-23 12:21] LABS: Hemoglobin A1C 6.0 % (<5.7)
== END 2025-06-23 08:08 | disposition home or self-care (01) ==
LOC: ANHGOSHLAB 08:08
PROVIDERS: PCP Family Medicine; Visit Provider Family Medicine
DX: E88.810 Metabolic syndrome (principal); R74.8 Abnormal levels of other serum enzymes
CPT/HCPCS: 36415; 80053; 80061; 83036